=== PATIENT | female | born 1995 | race African-American/Black ===

== ENCOUNTER 2016-07-10 20:58 | Emergency (ER) | payer OTHER ==
[2016-07-10 20:31] LABS: URINE SOURCE CLEAN CATCH
[2016-07-10 20:42] LABS: URINE APPEARANCE CLEAR; URINE BILIRUBIN NEG (NEG); URINE BLOOD NEG (NEG); URINE COLOR YELLOW; URINE GLUCOSE NEG (NEG); URINE KETONE TRACE (NEG); URINE LEUKOCYTE ESTERASE 1+ (NEG); URINE NITRATE NEG (NEG); URINE PH 5.5 (5-8); URINE PROTEIN NEG (NEG); URINE SPECIFIC GRAVITY 1.027 (1.003-1.035); URINE UROBILINOGEN 0.2 MG/DL (NEG)
[2016-07-10 20:46] LABS: CULTURE INDICATED? YES; URINE BACTERIA AUWI 1+ (NEGATIVE); URINE SQUAMOUS EPITHELIAL CELL OCC /[HPF]
[~2016-07-10 20:58] MED LIST: ANTISEPTIC SKI237 ML TOP; BACTRIM DS TABL1 TA1; BACTRIM DS TABL1 TA1 PO; BACTRIM DS TABL1 TA2 DOB; BACTROBAN22 GM; BENTYL20 MG DOB; CIPRO PO; CIPRO250 MG PO; CLINDAMYCIN HC300 MG PO; DIFLUCAN PO; FLAGYL; FLEXERIL10 M1 PO; IBUPROFEN PO; MONISTAT VG; NAPROXEN PO; NO MEDICATIONS; NORCO 5/325 TAB1 TAB PO; OMEPRAZOLE20 M1 PO; PHENERGAN PO; PRILOSEC20 MG PO; PYRIDIUM100 MG PO; ULTRAM PO; VOLTAREN75 MG PO; ZITHROMAX PO
[2016-07-11] MEDS ORDERED: PYRIDIUM (16:41)
[2016-07-11] MEDS ORDERED: ANTIBIOTIC (16:41)
[2016-07-15 17:40] LABS: CHLAMYDIA TRACH Not Detected (Not Detected); N GONOR Not Detected (Not Detected)
== END 2016-07-10 21:15 | disposition home or self-care (01) ==
LOC: CFTX 20:58
PROVIDERS: Nurse Practitioner
DX: N39.0 Urinary tract infection, site not specified (principal); F17.210 Nicotine dependence, cigarettes, uncomplicated; Z88.0 Allergy status to penicillin; Z88.1 Allergy status to other antibiotic agents
CPT/HCPCS: 81003; 84703; 87086; 87491; 87591; 87808; 87905; 99283

== ENCOUNTER 2016-07-11 17:18 | Emergency (ER) | payer OTHER ==
[~2016-07-11 17:18] MED LIST changes: +ANTIBIOTIC; +PYRIDIUM
== END 2016-07-11 17:50 | disposition home or self-care (01) ==
LOC: SED 17:18
DX: L29.9 Pruritus, unspecified (principal); R30.0 Dysuria; F17.210 Nicotine dependence, cigarettes, uncomplicated
CPT/HCPCS: 99282

== ENCOUNTER 2016-10-02 22:40 | Emergency (ER) | payer OTHER | END 2016-10-03 00:04 | disposition home or self-care (01) | LOC: SED 22:40 | DX: K21.9 Gastro-esophageal reflux disease without esophagitis (principal); F17.200 Nicotine dependence, unspecified, uncomplicated; Z88.0 Allergy status to penicillin; Z88.1 Allergy status to other antibiotic agents | CPT/HCPCS: 99284 ==